=== PATIENT | female | born 1940 | race Caucasian/White ===

== ENCOUNTER 2016-03-05 11:11 | Outpatient (RCR) | payer MEDICARE, OTHER ==
[~2016-03-05 11:11] MED LIST: DEXA2TA PO
== END 2016-04-02 ==
LOC: M ONCR 11:11
PROVIDERS: ATTEND Radiology Radiation Oncology
DX: C79.31 Secondary malignant neoplasm of brain (principal); C34.12 Malignant neoplasm of upper lobe, left bronchus or lung

== ENCOUNTER → 2016-03-13 | Outpatient (REF) | payer MEDICARE, OTHER | LOC: M LAB REF 14:45 | PROVIDERS: ATTEND Internal Medicine Medical Oncology | DX: C34.12 Malignant neoplasm of upper lobe, left bronchus or lung (principal) ==

== ENCOUNTER → 2016-03-13 | Outpatient (CLI) | payer MEDICARE, OTHER ==
--- NOTE | 2016-03-14 09:55 | REP ---
PET/CT: History: Adenocarcinoma of the lung. Initial staging. Patient status post CT guided needle biopsy of the lung on two dates, January 19, 2016 and February 22, 2016. MRI study of the brain from January 18, 2016 shows a ring enhancing mass in the right inferior temporal lobe consistent with metastasis. Comparisons: Comparison is made with [facility] CT study of the chest from January 19, 2016. TECHNIQUE: 84 minutes following the intravenous injection of a 8.1 mCi dose of F-18 FDG, three-dimensional PET scintigraphy is acquired from the skull base to the proximal thighs. Triplanar noncontrast CT scanning is acquired through the same anatomic range for attenuation correction, and image registration with scan parameters optimized to minimize radiation exposure to the patient. PET scintigraphy and CT datasets were fused and displayed on a workstation with multiplanar and projection display capability. PET/CT Findings: There is no abnormal hypermetabolic uptake in the right inferior temporal lobe. I note that the patient is already undergoing radiation therapy to the brain. There is a large peripherally hypermetabolic necrotic appearing mass in the left chest. This corresponds to the large mass on CT. Maximum SUV value in the periphery of the mass ranges up to 14.4. There is hypermetabolic left central mediastinal, AP window, wale uptake with maximum SUV value 17.6. There is no other abnormal hypermetabolic uptake within the chest. The head and neck soft tissues are unremarkable. In the abdomen and pelvis, there is normal hepatic, splenic, gastrointestinal, and genitourinary FDG accumulation. No abnormal adrenal or other abdominal or pelvic hypermetabolic uptake is seen. Impression: Known malignant and large mass in the left chest is hypermetabolic. There is a left central aortopulmonary window region lymph node which is also hypermetabolic. The known brain mass is not hypermetabolic, at least relative to normal brain uptake. No other sites are seen. Signed by Lavelle Espinoza MD 03/14/2016 12:06 P
== END ==
LOC: M RAD 14:44
PROVIDERS: ATTEND Radiology Radiation Oncology
DX: C34.12 Malignant neoplasm of upper lobe, left bronchus or lung (principal)
CPT/HCPCS: 78815; 88300; A9552

== ENCOUNTER 2016-04-03 10:31 | Outpatient (RCR) | payer MEDICARE, OTHER ==
--- NOTE | 2016-04-09 13:37 | RADONC ---
RADIATION ONCOLOGY PROGRESS NOTE DATE: 04/08/2016 CHART NUMBER: [id number] Ms. Hou was taken to the treatment machine and underwent her first fraction of radiation today to her lung. Radiation was tolerated without difficulty or discomfort. The patient had no chest or skin pain. She has no tenderness secondary to her first fraction of radiation. The patient's review of systems is generally noncontributory. She denies nausea, vomiting, fevers, chills, night sweats, diplopia, headaches, anxiety or depression, anorexia, weight loss, visual disturbances, chest pain, urinary or bowel difficulties, bone pain, or neurological problems. PHYSICAL EXAMINATION: The patient's skin over the treated field obviously showed no evidence of radiation change present. The remainder of her physical exam remains unchanged. Ms. Hou tolerated her treatment quite well, and radiation will continue as scheduled.
--- NOTE | 2016-04-16 11:33 | RADONC ---
RADIATION ONCOLOGY PROGRESS NOTE DATE: 04/15/2016 CHART NUMBER: [id number] Ms. Hou is presently at a dose of 1080 centigrade to her left lung and is tolerating treatments quite well at this point with no significant difficulties related to her radiation therapy. She reports some occasional nauseousness. REVIEW OF SYSTEMS: The patient's review of systems is positive for some occasional muscles nauseousness but is otherwise noncontributory. Denies nausea, vomiting, fevers, chills, night sweats, diplopia, headaches, anxiety or depression, anorexia, weight loss, visual disturbances, chest pain, urinary or bowel difficulties, bone pain, or neurological problems. PHYSICAL EXAMINATION: The patient is a well-developed, well-nourished, 75-year-old female, in no acute distress. HEENT exam is normocephalic, atraumatic. Extraocular movements are intact. There is no palpable cervical, supraclavicular, infraclavicular, axillary, or inguinal lymphadenopathy present. Lungs are clear to auscultation and percussion. Heart has a regular rate and rhythm. Abdomen is benign with no hepatosplenomegaly, masses, or tenderness. Skeletal examination reveals no tenderness to pressure or percussion of the bony skeleton. Extremities reveal no clubbing, cyanosis, or edema. Neurologic exam is grossly intact, as is the remainder of the physical examination. ASSESSMENT: The patient is tolerating treatments quite well and radiation will continue as scheduled. Edited: 04/17/2015 0527
--- NOTE | 2016-04-24 10:03 | RADONC ---
RADIATION ONCOLOGY PROGRESS NOTE DATE: 04/22/2016 CHART NUMBER: [id number] Ms. Hou is thus far at a dose of 1800 cGy to her left lung and was last treated on 04/19/2016. The patient did not come in today because she is out of town. She is visiting relatives in [place]. Radiation should resume tomorrow. As of Friday, she had been doing quite well and physical exam showed no skin changes or other changes.
--- NOTE | 2016-04-29 12:41 | RADONC ---
RADIATION ONCOLOGY PROGRESS NOTE DATE: 04/29/2016 CHART NUMBER: [id number] Ms. Hou is presently at a dose of 2700 cGy to her left lung and is tolerating treatments quite well at this point with no complaints related to her radiation therapy other than loss of appetite. The patient's review of systems is positive for loss of appetite but is otherwise noncontributory. She denies nausea, vomiting, fevers, chills, night sweats, diplopia, headaches, anxiety or depression, anorexia, weight loss, visual disturbances, chest pain, urinary or bowel difficulties, bone pain, or neurological problems. PHYSICAL EXAMINATION: The patient's skin is in good condition with no evidence of moist or dry desquamation. The remainder of her physical exam remains largely unchanged. She did lose 2 pounds in the past week and now weighs 127.6 pounds. This is an overall loss of less than 2 pounds over the past 2 weeks, however. The remainder of her physical exam remains unchanged. Ms. Hou is tolerating her treatments quite well, and radiation will continue as scheduled. She has been given dietary instructions.
== END 2016-04-30 ==
LOC: M ONCR 10:31
PROVIDERS: ATTEND Radiology Radiation Oncology
DX: C79.31 Secondary malignant neoplasm of brain (principal); C34.12 Malignant neoplasm of upper lobe, left bronchus or lung

== ENCOUNTER → 2016-04-03 | Outpatient (CLI) | payer MEDICARE, OTHER ==
--- NOTE | 2016-04-03 11:54 | RADONC ---
RADIATION ONCOLOGY SIMULATION NOTE DATE: 04/03/2016 Ms. Hou was taken to the CT scan for CT simulation of her lung field. CT was accomplished without difficulty or discomfort. Radiation treatment planning is underway and radiation treatments will begin subsequently. An immobilization device was created without difficulty or discomfort. It will be used throughout the course of treatment. I was physically present throughout the course of CT simulation.
== END ==
LOC: M RAD 08:25
PROVIDERS: ATTEND Radiology Radiation Oncology
DX: C34.90 Malignant neoplasm of unspecified part of unspecified bronchus or lung (principal)

== ENCOUNTER 2016-05-01 09:45 | Outpatient (RCR) | payer MEDICARE, OTHER ==
--- NOTE | 2016-05-07 06:59 | RADONC ---
RADIATION ONCOLOGY PROGRESS NOTE DATE: 05/06/2016 CHART NUMBER: [id number]. Ms. Hou is presently at a dose of 3420 cGy to her left lung and is tolerating the radiation portion of her treatment quite well. The patient received chemotherapy last Friday and since then has been throwing up and had no appetite. This happened on her last cycle of chemo three weeks ago. The patient and have many questions. REVIEW OF SYSTEMS: The patient's review of systems is positive for weakness, anorexia, nausea and vomiting. She denies fevers, chills, headaches, diplopia, chest pain, urinary or bowel difficulties, bone pain or neurological problems. She has no diarrhea. PHYSICAL EXAMINATION: The patient has lost 8-1/2 pounds over the past week. She weighs 119 pounds today. Last week she weighed in at 127.6 pounds. Her weight had been stable in between chemotherapy sessions. The skin over the treated field remains in good condition with no evidence of radiation change present. The remainder of the physical exam remains unchanged. ASSESSMENT: The patient is tolerating the radiation portion of her treatments quite well. I have obtained a copy of the patient's previous blood tests and medical records from medical oncology. I have sat with the patient and discussed in detail nutritional ideas. We have instructed her to increase her uptake with Ensure puddings. We have also talked about ice cream and different ways she can increase her calorie input. I have instructed her to contact her medical oncologist as well. Clearly, she is having a difficult time following each set of chemotherapy. I have instructed her to get a scale of her home and make sure she weighs herself every other day. If her weight is going down, then she should increase her dietary intake. The patient reports that she is urinating without difficulty and the urine is light, clear. She has been drinking and is not dizzy. She does not feel she has any dehydration issues going on. In summary, radiation will continue at this time. I have instructed her to contact her medical oncologist to discuss these side effects secondary to chemo. In the meantime, we will continue to follow her closely.
--- NOTE | 2016-05-13 12:46 | RADONC ---
RADIATION ONCOLOGY PROGRESS NOTE DATE: 05/13/2016 CHART NUMBER: [id number]. Ms. Hou is presently at a dose of 4320 cGy to her left lung and is tolerating treatments quite well at this point with no significant difficulties related to her radiation therapy. She has had less nauseousness recently. REVIEW OF SYSTEMS: The patient's review of systems is noncontributory. She denies nausea, vomiting, fevers, chills, night sweats, diplopia, headaches, anxiety or depression, anorexia, weight loss, visual disturbances, chest pain, urinary or bowel difficulties, bone pain, or neurological problems. PHYSICAL EXAMINATION: The patient's skin is in good condition with no evidence of moist dry desquamation. The remainder of her physical exam remains unchanged. Ms. Hou is tolerating treatments quite well and radiation will continue as scheduled.
--- NOTE | 2016-05-21 06:41 | RADONC ---
RADIATION ONCOLOGY PROGRESS NOTE DATE: 05/20/2016 CHART NUMBER: [id number]. PROGRESS NOTE: Ms. Hou is presently a dose of 5400 cGy to her left lung and is tolerating treatments quite well at this point with no complaints related to her radiation therapy. She is having no chest pain or increased shortness of breath at this time. REVIEW OF SYSTEMS: The patient's review of systems is noncontributory. Denies nausea, vomiting, fevers, chills, night sweats, diplopia, headaches, anxiety or depression, anorexia, weight loss, visual disturbances, chest pain, urinary or bowel difficulties, bone pain, or neurological problems. PHYSICAL EXAMINATION: The patient's skin is in good condition with no evidence of moist or dry desquamation. The remainder of her physical exam remains unchanged. Ms. Hou is tolerating treatments quite well and radiation will continue as scheduled.
--- NOTE | 2016-05-28 08:01 | RADONC ---
RADIATION ONCOLOGY DATE: 05/27/2016 PROGRESS NOTE Ms. Hou is presently at a dose of 5400 cGy to her left lung site and is tolerating treatments quite well at this point with no complaints at this time related to her radiation therapy or disease. The patient reports that Friday she went in for some IV fluids, but has since been able to swallow without difficulty. Her pain and swallowing has resolved. REVIEW OF SYSTEMS: The patient's review of systems is noncontributory. Denies nausea, vomiting, fevers, chills, night sweats, diplopia, headaches, anxiety or depression, anorexia, weight loss, visual disturbances, chest pain, urinary or bowel difficulties, bone pain, or neurological problems. PHYSICAL EXAMINATION: The patient's skin is in good condition with no evidence of moist or dry desquamation. Her lungs remain clear to auscultation and percussion. The remainder of her physical exam remains unchanged. Mrs. Hou is tolerating her treatments quite well and radiation will continue as scheduled.
--- NOTE | 2016-06-04 07:13 | RADONC ---
RADIATION ONCOLOGY TREATMENT SUMMARY: DATE OF SERVICE: 05/30/2016 CHART NO: [id number] DIAGNOSIS: Lung cancer. STAGE: Stage IV, metastatic. ECOG PERFORMANCE STATUS: 0 Ms. Hou is a very pleasant 75-year-old white female with the diagnosis of metastatic adenocarcinoma of the lung who presented to us for consideration of external beam radiation therapy to her left lung and mediastinum in an attempt to obtain local control. We treated the patient to her primary site for a total dose of 5940 cGy delivered in 33 fractions over 52 elapsed days from 04/08/2016 through 05/30/2016. The patient's primary site was treated on the linear accelerator utilizing a combination of 6X and 18X photon beams via 3D conformal treatments. Care was taken to maintain the spinal cord and other structures within their tolerance limits. The patient was treated with concomitant carboplatin and Alimta. Ms. Hou tolerated her treatments quite well with no difficulties related to her radiation therapy. She was able to complete therapy as prescribed. I have scheduled the patient to see me again in 1 month for further followup. She will also continue to be followed by her other physicians as well. cc: MD Dayton Conteh MD *Williams Roman MD
== END 2016-05-31 ==
LOC: M ONCR 09:45
PROVIDERS: ATTEND Radiology Radiation Oncology
DX: C34.12 Malignant neoplasm of upper lobe, left bronchus or lung (principal); C79.31 Secondary malignant neoplasm of brain

== ENCOUNTER → 2016-07-08 | Outpatient (CLI) | payer MEDICARE, OTHER ==
[~2016-07-08] MED LIST changes: +ISOVUE-370 76% 100ML VIAL (Q9967) As Ordered ONE
--- NOTE | 2016-07-09 06:29 | REP ---
REASON: Lung cancer. The only prior for comparison is 01/19/2016 from an outside institution. CONTRAST UTILIZED: 100 mL Isovue 370. There is a large centrally contrast enhancing 3.6 x 3.4 x 5.3 cm sized anterior mediastinal mass which abuts the main pulmonary artery along its left lateral wall. The mass extends to the left suprahilar region. There is no additional hilar adenopathy. There is no additional mediastinal adenopathy. There are no pleural or pericardial effusions. Evaluation of the imaged upper abdomen shows numerable low density lesions throughout the hepatic parenchyma and representing a change from the prior exam particularly in the medial segment of the left lobe. When compared to the prior exam, the mass has decreased in size. Evaluation of the osseous structures show no significant changes from the prior exam. Evaluation of the lung galvan show no significant changes from the prior exam. No new abnormal nodules, masses, or opacities have developed. Some of the lingular opacities seen previously have improved. IMPRESSION: Large anterior mediastinal mass on the left as described above with evidence to suggest hepatic metastasis. This should be further evaluated with complete hepatic CT for further assessment. Additionally, pre- and post Gadolinium enhanced MRI could be performed which may give more tissue characterization if clinically relevant. Signed by Johann Richey DO 07/09/2016 01:59 P
== END ==
LOC: M RAD 09:01
PROVIDERS: ATTEND Radiology Radiation Oncology
DX: C34.90 Malignant neoplasm of unspecified part of unspecified bronchus or lung (principal)
CPT/HCPCS: 71260; Q9967

== ENCOUNTER → 2016-07-09 | Outpatient (CLI) | payer MEDICARE, OTHER ==
[~2016-07-09] MED LIST changes: -ISOVUE-370 76% 100ML VIAL (Q9967) As Ordered ONE
--- NOTE | 2016-07-10 12:01 | RADONC ---
RADIATION ONCOLOGY FOLLOWUP NOTE DATE: 07/09/2016 CHART NUMBER: [id number] DIAGNOSIS: Lung cancer. STAGE: IV, metastatic. ECOG PERFORMANCE STATUS: 1 FOLLOWUP NOTE: Ms. Hou 75-year-old white female with the diagnosis of metastatic adenocarcinoma of lung who is presenting to us today for routine followup visit 1 month post completion of external beam radiation therapy to her left lung and mediastinum in an attempt to gain local control. The patient presents today reporting that she is now able to swallow. She has had difficulty swallowing and weakness. She reports weight loss. The patient is scheduled for consultation at [facility] on 07/23/2016. She is also being seen by Dr. Person. A CT scan of the chest was done on 07/08/2016 which showed a large anterior mediastinal mass which has reduced in size significantly when compared to previous CT scans and our treatment planning CT scan. Unfortunately of concern there appear to be multiple liver lesions which were not present on previous CT scans. REVIEW OF SYSTEMS: The patient's review of systems is positive for weakness and weight loss, but is otherwise generally noncontributory. She denies nausea, vomiting, fevers, chills, night sweats, diplopia, headaches, anxiety or depression, anorexia, weight loss, visual disturbances, chest pain, urinary or bowel difficulties, bone pain, or neurological problems. PHYSICAL EXAMINATION: The patient is a well-developed, well-nourished white female in no acute distress. HEENT exam is normocephalic, atraumatic. Extraocular movements are intact. There is no palpable cervical, supraclavicular, infraclavicular, axillary, or inguinal lymphadenopathy present. Lungs are clear to auscultation and percussion. Heart has a regular rate and rhythm. Abdomen is benign with no hepatosplenomegaly, masses, or tenderness. Skeletal examination reveals no tenderness to pressure or percussion of the bony skeleton. Extremities reveal no clubbing, cyanosis, or edema. Neurologic exam is grossly intact, as is the remainder of the physical examination. ASSESSMENT: The patient has clinically responded quite well to radiation. I have personally reviewed with the patient and her family the CT scan done on 07/08/2016 and compared it with our treatment planning CT scan which showed a significantly marked reduction in her lung mass. I did have a very in depth discussion with her regarding my concerns with regards to her liver. I made clear to her that we would not be able to treat the liver with radiation and I look forward to the expert opinions of Dr. Person, her medical oncologist, as well as her consulting physicians at [facility]. In light of the fact that she is being managed so closely by her medical oncologist and systemic therapy will be controlled by him, I have discharged her from our followup except on a p.r.n. basis. cc: MD Dayton Conteh MD *Williams Roman MD
== END ==
LOC: M ONCR 08:51
PROVIDERS: ATTEND Radiology Radiation Oncology
DX: C80.1 Malignant (primary) neoplasm, unspecified (principal)

== ENCOUNTER → 2016-08-12 | Outpatient (REF) | payer MEDICARE, OTHER ==
[2016-08-12 19:31] LABS: INR 1.03
== END ==
LOC: M LAB REF 17:43
PROVIDERS: ATTEND Internal Medicine Medical Oncology
DX: C34.91 Malignant neoplasm of unspecified part of right bronchus or lung (principal)

== ENCOUNTER → 2016-08-15 | Outpatient (CLI) | payer MEDICARE, OTHER ==
[~2016-08-15] MED LIST changes: +LIDOCAINE 1% MDV 20ML VIAL As Ordered ONE
--- NOTE | 2016-08-15 10:29 | REP ---
RIGHT UPPER QUADRANT ULTRASOUND: Real-time sonographic evaluation of the right upper quadrant performed. The liver is evaluated prior to his scheduled ultrasound-guided biopsy. In the medial right lobe of the liver is a hypoechoic lesion approximately 1.5 cm in diameter. This is somewhat suspicious and this lesion is targeted for biopsy. Superiorly in the left lobe anteriorly is a hyperechoic nodule 1.3 cm in diameter which may represent a hemangioma or focal fatty infiltration. An 8 mm cyst is seen in the right lobe near the portal vein. The hypoechoic nodule in the right lobe near the main hepatic vein is hypoechoic and could represent a metastatic lesion. Signed by Davi Araiza MD 08/15/2016 04:24 P
--- NOTE | 2016-08-15 12:47 | REP ---
ULTRASOUND GUIDED LIVER BIOPSY: The procedure was performed under the direct supervision of Dr. Araiza. The patient has a history of a 1.5 cm hypoechoic lesion in the medial right lobe of the liver seen on a previous ultrasound performed earlier today. The risks and benefits of the procedure were explained to the patient and informed consent was obtained. The liver nodule was localized using ultrasound guidance. The skin was prepped and draped in a sterile fashion. 1% lidocaine was used as a local anesthetic. Using ultrasound guidance and 19/20 gauge coaxial needle biopsy system was inserted and advanced into the nodule. 4 core biopsy samples were obtained and sent to lab. The patient tolerated the procedure well and there were no immediate complications. After the appropriate amount of monitored convalescence the patient was discharged from the department. Reviewed by IMANI Guido 08/15/2016 03:19 PEdited and Signed by Davi Araiza MD 08/15/2016 04:32 P
== END ==
LOC: M RADPRO 08:11
PROVIDERS: ATTEND Internal Medicine Medical Oncology
DX: C34.90 Malignant neoplasm of unspecified part of unspecified bronchus or lung (principal); K76.9 Liver disease, unspecified

== ENCOUNTER → 2016-09-12 | Outpatient (REF) | payer MEDICARE, OTHER ==
[~2016-09-12] MED LIST changes: -LIDOCAINE 1% MDV 20ML VIAL As Ordered ONE
[2016-09-12 16:10] LABS: MAGNESIUM LEVEL 2.1 MG/DL (1.8-2.4); PHOSPHORUS LEVEL 3.4 MG/DL (2.5-4.9)
== END ==
LOC: M LAB REF 15:08
PROVIDERS: ATTEND Internal Medicine Medical Oncology
DX: C34.90 Malignant neoplasm of unspecified part of unspecified bronchus or lung (principal)

== ENCOUNTER → 2016-10-24 | Outpatient (REF) | payer MEDICARE, OTHER | LOC: M LAB REF 17:27 | PROVIDERS: ATTEND Internal Medicine Medical Oncology | DX: C34.90 Malignant neoplasm of unspecified part of unspecified bronchus or lung (principal) ==

== ENCOUNTER → 2016-12-24 | Outpatient (REF) | payer MEDICARE, OTHER | LOC: M LAB REF 14:00 | PROVIDERS: ATTEND Internal Medicine Medical Oncology | DX: C34.90 Malignant neoplasm of unspecified part of unspecified bronchus or lung (principal) ==

== ENCOUNTER → 2016-12-27 | Outpatient (CLI) | payer MEDICARE, OTHER ==
[~2016-12-27] MED LIST changes: +PROHANCE 279.3MG/ML 5ML VIAL (A9576) As Ordered ONE
--- NOTE | 2016-12-27 14:26 | REP ---
MRI BRAIN WITHOUT AND WITH IV GADOLINIUM: HISTORY: Restaging small cell lung carcinoma. COMPARISON STUDY: January 18, 2016. This prior study was done at [facility]. GADOLINIUM ENHANCEMENT DOSE: 4.5 mL of intravenous ProHance, half-dose protocol. MRI FINDINGS: Bony calvarium appears intact. There is no MR evidence of significant paranasal sinus disease. Craniocervical junction and upper cervical cord are normal in appearance. There is no evidence of intracranial mass or abnormal enhancement to suggest metastatic disease. Minimal diffuse cerebral atrophy is seen. Diffusion weighted scans show no evidence of restricted diffusion to suggest acute ischemia. There is extensive subcortical and periventricular white matter hyperintensity bilaterally in the supratentorial brain. This pattern is diffuse and extensive and is compatible with postradiation change. The previously noted focus of enhancement in the left parietal lobe is no longer apparent. No infarct or extra-axial fluid collection is seen. IMPRESSION: Extensive periventricular white matter T2 hyperintensity post radiation. There is no MR evidence of intracranial metastasis at this juncture. The previously noted left parietal enhancing nodule is no longer apparent. Signed by Lavelle Epsinoza MD 12/27/2016 02:56 P
== END ==
LOC: M RAD 12:43
PROVIDERS: ATTEND Internal Medicine Medical Oncology
DX: C34.90 Malignant neoplasm of unspecified part of unspecified bronchus or lung (principal)
CPT/HCPCS: 70553; A9576

== ENCOUNTER → 2017-02-17 | Outpatient (REF) | payer MEDICARE, OTHER ==
[~2017-02-17] MED LIST changes: -PROHANCE 279.3MG/ML 5ML VIAL (A9576) As Ordered ONE
[2017-02-17 14:32] LABS: FREE T4 1.41 NG/DL (0.76-1.46); MAGNESIUM LEVEL 2.3 MG/DL (1.8-2.4); PHOSPHORUS LEVEL 3.7 MG/DL (2.5-4.9)
== END ==
LOC: M LAB REF 13:22
PROVIDERS: ATTEND Internal Medicine Medical Oncology
DX: C34.90 Malignant neoplasm of unspecified part of unspecified bronchus or lung (principal); Z79.899 Other long term (current) drug therapy

== ENCOUNTER → 2017-03-13 | Outpatient (CLI) | payer MEDICARE, OTHER | LOC: M ONCR 10:02 | DX: C34.12 Malignant neoplasm of upper lobe, left bronchus or lung (principal); C79.31 Secondary malignant neoplasm of brain | CPT/HCPCS: G0463 ==

== ENCOUNTER 2017-03-17 15:56 | Outpatient (RCR) | payer MEDICARE, OTHER | END 2017-04-02 | LOC: M ONCR 15:56 | DX: C34.12 Malignant neoplasm of upper lobe, left bronchus or lung (principal); C79.31 Secondary malignant neoplasm of brain | CPT/HCPCS: 77307 ==

== ENCOUNTER → 2017-03-17 | Outpatient (CLI) | payer MEDICARE, OTHER | LOC: M RAD 10:35 | DX: C34.90 Malignant neoplasm of unspecified part of unspecified bronchus or lung (principal) ==